=== PATIENT | male | born 1950 | race Caucasian/White ===

== ENCOUNTER 2017-01-02 19:19 | Emergency (ER) | payer MEDICARE ==
[~2017-01-02] VITALS: Ht 177.8 cm; Wt 86.4 kg
[2017-01-02 19:34] VITALS: BP 162/92; PULSE 57; RESP 16; O2SAT 98
[2017-01-02] MEDS ORDERED: Dexamethasone 10 mg/mL Inj IM ONE (21:50)
[2017-01-02] MEDS ORDERED: CYCL5TAB PO (21:58)
[2017-01-02] MEDS ORDERED: HYDROcodone-APAP 5-325 mg Tablet PO ONE (22:15)
--- NOTE | 2017-01-02 22:15 | ED.REPORT ---
HPI-General Illness Date of Service Jan 02, 2017 ED Provider: Yimi Davalos MD A 66 year old male with a history of hyperlipidemia and gluacoma presents to the ED with shooting, posterior neck pain that began 2 days ago. His pain has been persistent since onset and he rates his current pain as an 8/10. His pain resembles his sciatica pain that he rates as a constant 10/10. The patient states that the pain begins at the base of his neck and shoots upward to his occiput. He has reportedly taken 16 200mg ibuprofen over the past 12 hours for his pain. The ibuprofen provides limited relief for his pain and he endorses recent insomnia secondary to pain. Patient denies any exacerbating factors. He denies any numbness/tingling in his extremities, vision changes, lightheadedness , dizziness, fever, chills, nausea, vomiting, chest pain, shortness of breath, cough, bowel or bladder incontinence, hematemesis, hematochezia, earache, or rash. The patient denies any recent injury or trauma that might have caused his discomfort. Nursing Notes Stated Complaint: NECK STRAIN, HEADACHE Chief Complaint: Headache Nursing Notes Reviewed: Yes Allergies: Coded Allergies: No Known Allergies (Unverified , 01/02/17) Scheduled PRN Cyclobenzaprine (Cyclobenzaprine) 5 Mg Tablet 5 MG PO TID PRN PRN Spasm General Time Seen by MD: 21:12 Chief Complaint Other (Neck pain) Hx Obtained From: Patient Arrived By: Walk-in Sudden in Onset?: No Onset Occurred: 2 days ago Symptom Duration: Since onset Location: : Neck Quality: Painful, Sharp (Shooting) Severity: Current: Pain level 8 out of 10 Severity: Maximum: Pain level 10 out of 10 Associated with: Reports: Headache, Denies: Abdominal pain, Chest pain, Cough, Nausea, Numb extremities, Shortness of breath, Vomiting, Weak extremity Pertinent Negative: Pt denies other symptoms Relieved by: OTC medications Pertinent Negative: Exacerbated by nothing Recent Healthcare: No recent doctor visit, No recent hospitalization Similar Sx Previous: No Past Medical History Past Medical History Hyperlipidemia Gluacoma Sciatica Past Surgical History TURP Family History Denies No family history of hemorrhagic disorders Smoking History Never Smoker Social History Alcohol Use: Denies alcohol use Drug Use: Denies drug use Other Social History: Good social support, , Local resident Ambulatory Status Independent Review of Systems Full Review of Systems Constitutional: Denies: Chills, Fever Eyes: Denies: Visual loss bilateral Ears / Nose / Throat: Denies: Earache bilateral Respiratory: Denies: Non-productive cough, Shortness of breath Cardiovascular: Denies: Chest pain GI: Denies: Abdominal pain, Hematemesis, Hematochezia, Nausea, Vomiting Male: Denies Incontinence Musculoskeletal: Reports: Neck pain Skin: Denies Rash Neurologic: Reports: Headache, Denies: Dizziness, Lightheaded, Numbness, Weakness Psychiatric: Reports: Insomnia Complete sys rev & neg: except as marked. Physical Exam Nursing note and vitals reviewed. Constitutional: Well-developed, well-nourished. Not diaphoretic. Head: Normocephalic and atraumatic. No palpable tenderness or deformity. Mouth/Throat: Oropharynx is clear and moist. No oropharyngeal exudate. Eyes: EOM are normal. Pupils are equal, round, and reactive to light. Neck: Supple, no tracheal deviation. No palpable deformity. Diffuse tenderness with palpation to the right posterior neck and across upper trapezius. Full ROM. No meningismus. Cardiovascular: Normal rate, regular rhythm. Equal and intact distal pulses throughout. Pulmonary/Chest: Effort normal and breath sounds normal. No respiratory distress. Abdominal: Soft. No distension. Musculoskeletal: Range of motion grossly intact, moving all extremities. No edema or tenderness appreciated Neurological: AOx3. Grossly nonfocal exam. Strength and sensation intact and equal to bilateral upper and lower extremities. Normal finger to nose testing. Skin: Warm and dry, no rashes or pallor appreciated. Psychiatric: Appropriate mood and affect. Behavior appears normal. Vital Signs Vital Signs Date Time Temp Pulse Resp B/P Pulse Ox O2 Delivery O2 Flow Rate FiO2 01/02/17 22:26 87 18 175/85 98 01/02/17 19:34 36.8 57 16 162/92 98 Room Air Initial VS: Reviewed Re-Eval/Medical Decision Med Decision/Clinical Course Well-appearing 66-year-old male presenting to the ED for evaluation of right- sided neck pain in the context of increased activity over the past several weeks while moving. He states that his "headache" is only related to the pain radiating out from the neck and is not having a headache independently of this. No recent fever or chills, no meningismus, no limitation in the range of movement that would suggest meningitis. No trauma to the area. No midline cervical tenderness. Neurologic exam intact with good chef & owner strength throughout. No bowel or bladder incontinence, nor urinary retention. He does have some tenderness along the right side of the neck and trapezius into the muscle. I suspect that he may have strained this area. No red flag symptoms that would require further workup at this time. Patient given Decadron IM; told to not take so many ibuprofen and to follow the directions on the bottle. I will give him a prescription for a short course of Flexeril and a referral to a local PCP was given. I would like him to follow-up in the next several days for reassessment. Very careful return precautions were discussed and the patient was agreeable to the plan, no further questions. Time of Eval: 22:33 Patient Status: Condition improved, Pain improved Re-Evaluation/Progress Note: Pain has improved following decadron injection. Discussed reassuring exam with the patient. He agrees to take the recommended amount of ibuprofen. Counseled Regarding: Diagnosis, Need for follow-up, When/why to return to ED Discharge & Departure Primary Impression: Neck pain Additional Impression: Neck strain Encounter type: initial encounter Qualified Code: S16.1XXA - Strain of muscle, fascia and tendon at neck level, initial encounter Disposition: Home Discharge Condition All VS Reviewed: Yes Condition: Improved Patient Instructions: Cyclobenzaprine (By mouth), Neck Exercises (GEN), Neck Pain (ED) Additional Instructions: Thank you for trusting us with your care this afternoon. Your emergency department evaluation today is reassuring that there is no emergent cause for concern at this time that would require admission. Schedule a follow up appointment with your primary care physician (or see referral) in the next 1-2 days for a recheck . You received a decadron shot today in the ermergency department tonight. This should help relieve your pain somewhat. Take the muscle relaxer as directed. Please do not take more than 12 ibuprofen per day. You can take 600 mg of ibuprofen every 6-8 hours as needed for pain. Please return to the emergency department for any new or worsening conditions including any any headache, worsening pain/stiffness, nausea, vomiting, fever, chills, shortness of breath, facial droop, unilateral weakness, numbness, tingling or symptoms of concern to you. Referrals: Bradley Dale MD Attestation Portions of this note were transcribed by French Hollis. I, Dr. Davalos, personally performed the history, physical exam and medical decision-making; I reviewed and confirmed the accuracy of the information in the transcribed note. Signed by: Jean Claude Newton, 01/02/17. Yimi Davalos MD Jan 02, 2017 22:15 FRENCH HOLLIS Jan 02, 2017 22:22
[2017-01-02 22:26] VITALS: BP 175/85; PULSE 87; RESP 18; O2SAT 98
== END 2017-01-02 22:27 | disposition home or self-care (01) ==
LOC: SED 19:19 → EDBD 19:19 → SED 22:27
DX: S16.1XXA Strain of muscle, fascia and tendon at neck level, initial encounter (principal); X50.9XXA Other and unspecified overexertion or strenuous movements or postures, initial encounter; Y93.E6 Activity, residential relocation; Y92.89 Other specified places as the place of occurrence of the external cause; Y99.8 Other external cause status; H40.9 Unspecified glaucoma; E78.5 Hyperlipidemia, unspecified
CPT/HCPCS: 96372; 99283; J1100